=== PATIENT | female | born 1965 | race Caucasian/White ===

== ENCOUNTER → 2016-04-08 | Outpatient (CLI) | payer OTHER ==
--- NOTE | 2016-04-08 09:13 | CT ---
EXAMINATION TYPE: CT sinus wo con DATE OF EXAM: 04/08/2016 8:49 AM COMPARISON: Previous study dated 08/25/2014 HISTORY: Chronic Sinusitis CT DLP: 583.7 mGycm Automated exposure control for dose reduction was used. FINDINGS: Visualized intracranial structures are unremarkable. Soft tissues are unremarkable. The patient is right maxillary retention cyst has decreased in size from 1.2 cm x 1.2 cm to 1.2 cm x 0.6 cm. The paranasal sinuses are otherwise clear. Both infundibula are patent. IMPRESSION: REDUCTION IN SIZE OF THE PATIENT'S RETENTION CYST OR POLYP, RIGHT MAXILLARY SINUS.
== END | disposition home or self-care (01) ==
LOC: RADCTMAIN 08:29
PROVIDERS: ATTEND Otolaryngology
DX: J32.0 Chronic maxillary sinusitis (principal)
CPT/HCPCS: 70486